=== PATIENT | male | born 1970 | race African-American/Black ===

== ENCOUNTER 2022-08-14 08:13 | Outpatient (CLI) | payer OTHER ==
[~2022-08-14] VITALS: Ht 162.6 cm; Wt 127.5 kg
== END 2022-08-14 19:24 | disposition home or self-care (01) ==
LOC: NM 08:13
PROVIDERS: ATTEND Internal Medicine
DX: R94.31 Abnormal electrocardiogram [ECG] [EKG] (principal)
CPT/HCPCS: A9500; J2785